=== PATIENT | male | born 1955 | race Caucasian/White ===

== ENCOUNTER 2025-05-07 10:30 | Emergency (ER) | payer MEDICARE, SELFPAY ==
[2025-05-07 10:40] VITALS: BP 162/88
[2025-05-07 11:27] VITALS: BMI 23.6
--- NOTE | 2025-05-07 11:27 | ED.GENMED ---
History of Present Illness
General
Chief Complaint: Skin Problem
Time Seen by Provider: 05/07/25 11:11
History of Present Illness
History of Present Illness:
HPI LISBET: Patient is a 70-year-old male with past medical history of atrial flutter and pacemaker here today for 1 day of swelling and redness noted along the right forearm. He notices symptoms primarily posteriorly. No falls or injuries. No
known insect bites or bug bites. No fevers. No falls or injuries. No significant pain. No drainage. No other acute complaints.
Past History
Past History
ED Past Medical History: None
ED Past Surgical History: Urological (Prostate) and Other (Hernia repair)
Social History
Tobacco: Non-smoker
Alcohol: None
Personal:
Living: with family
Employment: Employed (Dentist)
Family History
Family History: Other (Noncontributory)
Review of Systems
Review of Systems
All Other Systems: ROS reviewed and negative except as documented in HPI and ROS
Phy Exam
Physical Exam
Physical Exam:
GENERAL: Alert , in no apparent distress
EYE: pupils equal and reactive
NECK: Supple
NEUROLOGICAL: Alert and oriented, no focal neuro deficits
SKIN: Warm and dry, skin intact. mild amount of erythema and swelling noted along the right forearm primarily laterally and posteriorly
MUSCULOSKELETAL: No edema, well perfused.
PSYCH: Normal and appropriate interaction.
Course
Orders/Labs/Results
Orders:
Orders
05/07/25 11:27
CR Forearm - Right 2 View Urgent
Comment:
Reason For Exam: redness, swelling of arm
05/07/25 11:37
Basic Metabolic Panel Urgent
CRP [C-Reactive Protein] Urgent
Complete Blood Count/With Diff Urgent
ESR [Erythrocyte Sed Rate] Urgent
Abnormal Lab Results
05/07/25
11:37
MCV 96.3 H fL
(80.0-94.0)
MCH 31.2 H pg
(27.0-31.0)
MCHC 32.4 L g/dL
(33.0-37.0)
BUN 26 H mg/dl
(9-20)
05/07/25 11:37
05/07/25 11:37
Vital Signs
Initial and Last Documented VS:
Initial Vital Signs
Temp Pulse Resp BP Pulse Ox
98.1 F 55 18 162/88 100
05/07/25 10:40 05/07/25 10:40 05/07/25 10:40 05/07/25 10:40 05/07/25 10:40
Last Documented Vital Signs
Temp Pulse Resp BP Pulse Ox
97.7 F 59 20 124/77 98
05/07/25 13:39 05/07/25 13:39 05/07/25 13:39 05/07/25 13:39 05/07/25 13:39
MDM/Problems Addressed
Differential Diagnosis Includes:
HPI PA-C: Patient is a 70-year-old male with past medical history of atrial flutter and pacemaker here today for 1 day of swelling and redness noted along the right forearm. Overall, patient well-appearing. On examination he is hypertensive. He is
noted to have a mild amount of erythema and swelling noted along the right forearm primarily laterally and posteriorly. There is no evidence of trauma or open wounds. No linear streaking. Compartments are soft throughout. No significant
tenderness. No drainage. No fluctuance or induration. Sensation and motor intact throughout. Pulses 2+. We discussed the possibility of an allergic reaction given swelling and erythema and lack of pain/tenderness. We also discussed the
possibility of a skin infection given erythema, swelling, and progression of symptoms. We will obtain screening labs as well as x-rays.
05/07/25 13:38: Screening labs without significant abnormalities. X-ray reveals swelling without acute abnormalities. Will cover patient for acute cellulitis with cephalexin. Recommend supportive measures. Recommend close follow-up with his
doctor. Return precautions given. All questions answered. Stable for discharge.
*Pulse Oximetry
SaO2: 100
Oxygen Mode of Delivery: Room air
Patient hypoxic: no
*Critical Care Note
Total Time (30-74mins, 75-104mins- exclusive of procedures): Not Applicable
ED Attending Note
-
Portions of this chart may have been created with voice recognition software.� Occasional wrong word or��sound alike� substitutions may have occurred due to the inherent limitations of voice recognition software.
Discharge Plan
Departure
Patient Disposition: Home (Routine Discharge)
Date of Disposition: 05/07/25
Time of Disposition: 13:29
Patient with high blood pressure during this ER visit?: Yes
Condition: Good
Discharge Problem:
Cellulitis of right forearm
Instructions: Cellulitis (Skin Infection), Adult (DC)
Prescriptions:
New
cephalexin 500 mg capsule
500 mg PO QID 5 Days Qty: 20 0RF
Referrals:
Estiven Corona MD [Family Provider, Internal Medicine] - Follow up in 5-7 days
Activity Restrictions/Additional Instructions:
Begin the oral antibiotics as directed.
Follow-up with your doctor within the next 3 to 5 days.
Return for any new, worsening, or concerning symptoms.
Interventions
Interventions:
*Risk Screen - Suicide Last Done: 05/07/25 10:40
*General Assessment Last Done: 05/07/25 10:40
*Neglect/Abuse Screening Last Done: 05/07/25 10:40
*ED- Fall Risk Assessment Last Done: 05/07/25 11:27
*ED COVID-19 Vaccine History Last Done: 05/07/25 11:27
*Nursing Disposition Last Done: 05/07/25 13:39
ED-Skin Assessment Last Done: 05/07/25 11:23
Discharge Date and Time
Discharge Date/Time: 05/07/25 13:45
Print Language: [place]
[2025-05-07 11:29] VITALS: BP 125/85
[2025-05-07 11:51] LABS: Hematocrit 49.0 % (39.0-52.0); Hemoglobin 15.9 g/dL (13.0-18.0); Mean Corp Hgb Conc. 32.4 g/dL (33.0-37.0); Mean Corpuscular Volume 96.3 fL (80.0-94.0); Nucleated Red Blood Cells % 0 % (-); Platelet Count 200 10^3/uL (130-400); Red Cell Dist. Width 12.8 % (11.5-14.5)
[2025-05-07 12:00] VITALS: BP 110/73
[2025-05-07 12:14] LABS: Blood Urea Nitrogen 26 mg/dl (9-20); Calcium 9.6 mg/dl (8.4-10.2); Carbon Dioxide 30 mmol/L (22-30); Chloride 103 mmol/L (98-107); Estimated Creatinine Clearance 92 ml/min; Glucose 82 mg/dl (70-99); Potassium 4.5 mmol/L (3.5-5.1); Sodium 138 mmol/L (135-145); eGFR > 60.00
[2025-05-07 12:17] LABS: C-Reactive Protein 5.80 mg/L (0.0-10.00)
[2025-05-07 13:00] VITALS: BP 124/77
[2025-05-07 13:39] VITALS: BP 124/77
== END 2025-05-07 13:45 | disposition home or self-care (01) ==
LOC: EMR 10:30
PROVIDERS: Physician Assistant; EMERGENCY PHYSICIAN Emergency Medicine; FAMILY PHYSICIAN Internal Medicine
DX: L03.113 Cellulitis of right upper limb (principal); R03.0 Elevated blood-pressure reading, without diagnosis of hypertension; I48.92 Unspecified atrial flutter; Z95.0 Presence of cardiac pacemaker
CPT/HCPCS: 99283; 73090; 80048; 85025; 85652; 86140